=== PATIENT | male | born 1990 ===

== ENCOUNTER 2018-11-17 05:10 | Day surgery (SDC) | payer OTHER ==
[~2018-11-17] VITALS: Ht 180.3 cm; Wt 94.3 kg
[2018-11-17] VITALS (12 sets, daily range): BP systolic 106–150; BP diastolic 52–93
[~2018-11-17 05:10] MED LIST: AMLODIPINE BESY10 MG ORAL; LISINOPRIL10 MG ORAL
[2018-11-17] MEDS ORDERED: Dexamethasone 20mg/5ml IVP ONE (05:15)
[2018-11-17] MEDS ORDERED: ceFAZolin sod 1 GM in NS 55 ML IVPB ONE (05:15)
[2018-11-17] MEDS ORDERED: LR 1000ml 1,000 ML IVLG SCH (06:14)
[2018-11-17] MEDS ORDERED: Ketorolac 30mg Inj IV PRN ×2 (06:15)
[2018-11-17] MEDS ORDERED: Hydromorphone 0.5mg/0.5ml inj IVP PRN (06:15)
[2018-11-17] MEDS ORDERED: Metoclopramide 10mg/2ml Inj IVP PRN (06:15)
[2018-11-17] MEDS ORDERED: Atropine Sulfate 0.4mg/ml inj IVP PRN (06:15)
[2018-11-17] MEDS ORDERED: fentaNYL 100 mcg/2 mL IV PRN (06:15)
[2018-11-17] MEDS ORDERED: Meperidine 50mg/ml Inj(FOR RIGORS ONLY) IVP PRN (06:15)
[2018-11-17] MEDS ORDERED: DiphenhydrAMINE 50mg/ml Inj IVP PRN (06:15)
[2018-11-17] MEDS ORDERED: oxyCODONE HCL/Acetaminophen 5/325mg ORAL PRN (06:15)
[2018-11-17] MEDS ORDERED: HYDROcodone/Acetamin 7.5/325 tab ORAL PRN (06:15)
[2018-11-17] MEDS ORDERED: Norco 5mg/325mg tab ORAL PRN (06:15)
[2018-11-17] MEDS ORDERED: Midazolam 2mg/2ml Inj IVP PRN (06:15)
[2018-11-17] MEDS ORDERED: LORazepam Inj 2mg/ml 1ml IV PRN (06:15)
[2018-11-17] MEDS ORDERED: Zemuron 50mg/5ml Inj IV ONE (06:22)
[2018-11-17] MEDS ORDERED: fentaNYL 100 mcg/2 mL IV ONE ×2 (06:38→09:54)
[2018-11-17] MEDS ORDERED: Dexamethasone 4mg/ml vial ONE (06:41)
[2018-11-17] MEDS ORDERED: Lidocaine 1% MPF 10mg/ml 5ml ONE (06:41)
[2018-11-17] MEDS ORDERED: Sodium Chloride 10ml vial INJ ONE (06:41)
[2018-11-17] MEDS ORDERED: Bacitracin 50000 Units Vial ONE (06:42)
[2018-11-17] MEDS ORDERED: Thrombin 5000 units TOPIC ONE ×2 (06:42→08:51)
[2018-11-17] MEDS ORDERED: Lidocaine 1% Plain 30 ml INJ ONE ×2 (06:42→06:50)
[2018-11-17] MEDS ORDERED: Morphine Sulfate 4mg/ml Inj (IV/IM USE ONLY) IM PRN (06:45)
[2018-11-17] MEDS ORDERED: LORazepam 0.5mg tab ORAL PRN (06:45)
[2018-11-17] MEDS ORDERED: HYDROcodone/Acetamin 10/325 tab ORAL PRN (06:45)
[2018-11-17] MEDS ORDERED: HYDROmorphone 1mg/ml Carpuject SUBQ PRN (06:45)
[2018-11-17] MEDS ORDERED: Chloraseptic Spray 20mL Bottle ORAL PRN (06:45)
[2018-11-17] MEDS ORDERED: Acetaminophen (Non formulary) 100 ML IV ONE (06:45)
[2018-11-17] MEDS ORDERED: Propofol 1,000mg/ 100ml btl IV ONE (07:00)
[2018-11-17] MEDS ORDERED: LR 1000ml ONE (07:00)
[2018-11-17] MEDS ORDERED: Sterile Water Irrig 1000ml IRRIG ONE (07:00)
--- NOTE | 2018-11-17 07:07 | Anethesia Preoperative Eval ---
Anesthesia Pre-op PMH/ROS General Date of Evaluation: Nov 17, 2018 Time of Evaluation: 07:11 Anesthesiologist: Lorelei ASA Score: ASA 2 Mallampati Score Class I : Soft palate, uvula, fauces, pillars visible Class II: Soft palate, uvula, fauces visible Class III: Soft palate, base of uvula visible Class IV: Only hard plate visible Mallampati Classification: Class II Surgeon: Cody Diagnosis: Back Pain Surgical Procedure: L5-S1 Microdiscectomy, Decompression Anesthesia History: none Family History: no anesthesia problems Allergies: Coded Allergies: No Known Allergies (Unverified , 11/16/18) Medications: see eMAR Patient NPO?: Yes NPO Date: Nov 16, 2018 NPO Time: 2129 Past Medical History Cardiovascular: Reports: HTN Neurologic/Psychiatric: Reports: other - Vertigo Other: obesity - BMI 31 Anesthesia Pre-op Phys. Exam Physician Exam Last Vital Signs Date Time Temp Pulse Resp B/P (MAP) Pulse Ox O2 Delivery O2 Flow Rate FiO2 11/17/18 05:57 Room Air 11/17/18 05:47 97.9 74 18 147/61 (89) 99 Constitutional: NAD Neurologic: CN 2-12 intact Cardiovascular: RRR Respiratory: CTA Gastrointestinal: S/NT/ND Airway Exam Mallampati Score: Class II MO: full ROM: full Teeth: intact Anesthesia Pre-op A/P Risk Assessment & Plan Assessment: ASA 2 Plan: GA, SED, GlideScope Go Status Change Before Surgery: No Pre-Antibiotics Dru Grams Ancef IV Given Within 1 Hr of Incision: Yes Time Given: 07:31 Zafar Moseley MD Nov 17, 2018 07:07
--- NOTE | 2018-11-17 07:14 | Immediate Post-Op Evaluation ---
Immediate Post-Op Evalulation Immediate Post-Op Evalulation Procedure: L5-S1 Microdiscectomy, Decompression Date of Evaluation: Nov 17, 2018 Time of Evaluation: 10:32 IV Fluids: 1000 LR Blood Products: 0 Estimated Blood Loss: 20 Urinary Output: 0 Blood Pressure Systolic: 106 Blood Pressure Diastolic: 44 Pulse Rate: 99 Respiratory Rate: 16 O2 Sat by Pulse Oximetry: 100 Temperature (Fahrenheit): 97 Pain Score (1-10): 2 Nausea: No Vomiting: No Complications 0 Patient Status: awake, reacts, patent, extubated, none Hydration Status: adequate Dru Grams Ancef IV Given Within 1 Hr of Incision: Yes Time Given: 07:31 Zafar Moseley MD Nov 17, 2018 07:14
--- NOTE | 2018-11-17 07:15 | Pre-Procedure Note/Attestation ---
Pre-Procedure Note/Attestation Complete Prior to Procedure Planned Procedure: not applicable Procedure Narrative: microdiscectomy: L4-L5, L5-S1 Indications for Procedure Pre-Operative Diagnosis: trauma HNP radiculopathy, weakness L4-L5, L5-S1 Attestation I attest that I discussed the nature of the procedure; its benefits; risks and complications; and alternatives (and the risks and benefits of such alternatives ), prior to the procedure, with the patient (or the patient's legal banking representative). I attest that, if there was a reasonable possibility of needing a blood transfusion, the patient (or the patient's legal banking representative) was given the [place] [facility] standardized written summary, pursuant to the [employer] [place] Blood Safety Act ([place] Health and Safety Code # 1645, as amended). I attest that I re-evaluated the patient just prior to the surgery and that there has been no change in the patient's H&P, except as documented below: Jorge Ross MD Nov 17, 2018 07:15
--- NOTE | 2018-11-17 07:15 | 48 Hour Post Anesthesia Eval ---
Post Anesthesia Evaluation Procedure: L5-S1 Microdiscectomy, Decompression Date of Evaluation: Nov 17, 2018 Time of Evaluation: 12:46 Blood Pressure Systolic: 112 0: 56 Pulse Rate: 82 Respiratory Rate: 18 Temperature (Fahrenheit): 98.2 O2 Sat by Pulse Oximetry: 100 Airway: patent Nausea: No Vomiting: No Pain Intensity: 0 Hydration Status: adequate Cardiopulmonary Status: Stable Mental Status/LOC: patient returned to baseline Follow-up Care/Observations: 0 Post-Anesthesia Complications: 0 Follow-up care needed: ready to discharge Zafar Moseley MD Nov 17, 2018 07:15
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
[2018-11-17] MEDS ORDERED: NS Irrig 1000ml IRRIG ONE (08:49)
[2018-11-17] MEDS ORDERED: Neostigmine 1mg/ml 10ml Inj ONE (09:24)
[2018-11-17] MEDS ORDERED: Glycopyrrolate 0.2mg/ml 1ml Vial ONE (09:24)
--- NOTE | 2018-11-17 09:46 | Brief Operative Note ---
Immediate Post Operative Note Operative Note Pre-op Diagnosis: trauma HNP radiculopathy, weakness L4-L5, L5-S1 Procedure: Microdiscectomy L4-L5, L5-S1 Xray Local Magnification Post-op Diagnosis: same as pre-op Findings: consistent w/pre-op dx studies Surgeon: Cody PEÑALOZA Mat Gauger: Dot HELM Anesthesiologist: Lorelei PEÑALOZA Anesthesia: general Specimen: yes Complications: none Condition: stable Fluids: anesthesia Estimated Blood Loss: minimal Drains: none Implant(s) used?: No Jorge Ross MD Nov 17, 2018 09:46
[2018-11-17] MEDS ORDERED: Naloxone 0.4mg/ml Inj IVP PRN (10:00)
[2018-11-17] MEDS ORDERED: Naloxone 0.4mg/ml Inj ONE (10:03)
--- NOTE | 2018-11-17 12:20 | NUR ---
NURSE NOTES: Received patient from recovery,patient is alert and oriented.Respirations are easy and unlabored.02 on at 3L N/C.Dressing to the lower back clean dry and intact.patient has bilateral strong hand grasp.patient able to move lower extremities. no complaint of numbness or tingling. No complaint of pain at this timeSCDs are on.Call light within reach,will monitor.
[2018-11-17] MEDS ORDERED: D5 1/2NS 1,000 ML IV SCH (13:30)
--- NOTE | 2018-11-17 13:41 | NUR ---
NURSE NOTES: PATIENT REMAINS STABLE. VOIDING W/O DIFFICULTY VIA URINAL.REVIEWED SPINE PRECAUTIONS WITH PATIENT. VERBALIZED UNDERSTANDING.AMBULATED PATIENT IN HALLWAY. GAIT STEADY DENIES DIZZINESS. UP TO CHAIR FOR MEALS. DENIES N/V PAIN CONTROLLED.
--- NOTE | 2018-11-17 15:15 | Operative Note - Dictated ---
DATE OF OPERATION: 11/17/2018 SURGEON: Jorge Ross M.D. VETERINARY MEDICAL OFFICER: ALICJA Eaton. ANESTHESIOLOGIST: Zafar Moseley M.D. ANESTHESIA: General with intubation. PREOPERATIVE DIAGNOSIS: Post-trauma herniated nucleus polyposis at L4-L5, L5-S1 with radiculopathy, nerve root deficit, lower extremity. POSTOPERATIVE DIAGNOSIS: Post-trauma herniated nucleus polyposis at L4-L5, L5-S1 with radiculopathy, nerve root deficit, lower extremity. OPERATIVE PROCEDURES: 1. High-powered microscopic dissection. 2. Lumbar microdiskectomy at L4-L5, L5-S1. 3. Local anesthetic applied by surgeon. ESTIMATED BLOOD LOSS: Minimal. COMPLICATIONS: None. POSTOPERATIVE CONDITION: Good/stable. SPECIMEN: Disc fragments to pathology. DESCRIPTION OF PROCEDURE: The patient was brought to the operating room and in the supine position, general anesthesia with intubation was induced. IV antibiotics and IV Decadron were administered prior to incision time. Lumbodorsal spine was sterilely prepped and draped free in usual sterile fashion. Spinal needles were percutaneously placed obliquely so as to avoid midline through dermis and epidermis and a cross-table imaging was obtained interpreted by surgeon. Intraoperative x-rays interpreted by surgeon in back down below before level of incision placement. Slater were removed. Under high-power magnification, a longitudinal midline incision was placed over the appropriate intervals sharply through dermis and epidermis. Electrocautery dissection was carried through the subcutaneous tissue to the level of the subcutaneous tissue. Electrocautery dissection to the level of lumbodorsal fascia was incised right of midline over the lamina at the appropriate intervals. Marker was placed. Cross-table imaging obtained under sterile conditions demonstrating the correct levels were identified. Levels marked. Markers removed. Retractors placed. L4-L5: Right hemilaminotomy followed with resection of the ligamentum flavum. Dissection carried lateral to the dural tube. Bipolar electrocauterization minimally utilized for epidural vessels. No cerebrospinal fluid leakage noted anytime during the procedure. Dissection carried lateral with identification of the disc space that was demonstrating herniated nucleus polyposis. Lateral release. Annulotomy under high-power magnification, followed microdiscectomy not exceeding 10 mm posterior to anterior. No gross bleeding from the disc space proper. Disc space irrigated with antibiotic-containing saline. Gentle probing revealed no further mass effect from the disc space into either the foramen or midline. FloSeal applied. Attention turned with placement of retractors at L5-S1. A right hemilaminotomy was performed followed with resection of ligamentum flavum. Dissection lateral to the dural tube to the disc space with subligamentous disc noted. Annulotomy followed microdiscectomy not exceeding 10 mm in posterior to anterior. Decompression of the exiting foramen/nerve root. No dural tears or leaks noted anytime during the procedure. Wound irrigated copiously with antibiotic-containing saline. FloSeal applied. Sequential reapproximation of lumbodorsal fascia, subcutaneous tissue, dermis and epidermis with staple sutures utilized for dermis and epidermis. Local anesthetic 1% lidocaine with epinephrine applied to bilateral lateral aspects of the incision at the dermal/subcutaneous tissue border. Sterile bandage applied maintained in place with tape. The patient carefully turned from the prone to supine position on the transport bed where he was awakened and extubated in the operating room, and transported to postop recovery in good and stable condition. Jorge Ross M.D. DR: CARMINE JOB#: [id number] CC:
[2018-11-17] MEDS ORDERED: ceFAZolin sod 1 GM in D5W 55 ML IV SCH (15:30)
--- NOTE | 2018-11-17 17:50 | NUR ---
NURSE NOTES: Patient discharge with discharge instructions given,patient voiding without difficulty,patient tolerating po well.patient ambulating with slow steady gait.IV removed,IV name band removed.patient has personal belongings.patient family member here to take patient home.patient accompany down stairs to private vehicle.patient state he has appointment with Doctor in 2 weeks.
--- NOTE | 2018-11-18 09:04 | 48 Hour Post Anesthesia Eval ---
Post Anesthesia Evaluation Procedure: L5-S1 Microdiscectomy, Decompression Date of Evaluation: Nov 18, 2018 Time of Evaluation: 09:03 Nausea: No Vomiting: No Follow-up care needed: ready to discharge Prasad Quintana MD Nov 18, 2018 09:04
--- NOTE | 2018-11-18 15:49 | Diagnostic Imaging Report ---
Indication: Back pain Comparison: None Findings: 2 fluoroscopic views of the lumbar spine were obtained. Intraoperative localization films posterior to L5 noted. IMPRESSION: Intraoperative imaging
== END 2018-11-17 17:30 | disposition home or self-care (01) ==
LOC: SUR 05:10 → 3E 12:10 → SUR 17:30
DX: M51.16 Intervertebral disc disorders with radiculopathy, lumbar region (principal); M51.17 Intervertebral disc disorders with radiculopathy, lumbosacral region; I10 Essential (primary) hypertension; E66.9 Obesity, unspecified; Z68.31 Body mass index [BMI] 31.0-31.9, adult; E03.9 Hypothyroidism, unspecified; K64.9 Unspecified hemorrhoids; Z87.891 Personal history of nicotine dependence
CPT/HCPCS: 36415; 63030; 63035; 72020; 76000; 86850; 86900; 86901; 87081; J0690; J1100; J2001; J2250; J2310; J2405; J2704; J2710; J2765; J3010; 94003; 94150